=== PATIENT | female | born 1980 | race Caucasian/White ===

== ENCOUNTER → 2016-11-06 | Outpatient (CLI) | payer OTHER ==
[~2016-11-06] MED LIST: BACL10TA2 OR; BACL10TA2 PO; CITA20TA4 PO; IBUP200T2 PO; LISI10TA2 PO; LISI10TA4 PO; ROZEREM PO; TRAM50TA2 PO; TYLENOL #3 PO; VICO5TAB PO; rozerem
--- NOTE | 2016-11-26 00:06 | ECWPNPC ---
PATIENT NAME: JEANNETTE MURDOCK : 1980 GENDER: FEMALE VISIT DATE: 11/06/2016 DISCHARGE DATE: 11/06/16 1010 VISIT LOCKED DATE TIME: PHYSICIAN: AURELIANO SHARP RESOURCE: AURELIANO SHARP REASON FOR APPOINTMENT 1. BACK AND HIPS HISTORY OF PRESENT ILLNESS HISTORY OF PRESENT ILLNESS: PAIN THE PATIENT DESCRIBES THE PAIN... FALL RISK SCREENING: SCREENING :NO FALLS IN THE PAST YEAR TODAY'S VISIT: NOTES: RATES PAIN TODAY 2-3/10. DESCRIBES THE PAIN IS INTERMITTANT. HAS SOME GOOD DAYS AND BAD DAYS AND DOES WELL WITH HOT DAYS. PAIN IS CENTERED ACROSS THE BACK WITH NO RADIATION TO THE LEGS. . CURRENT MEDICATIONS TAKING MELOXICAM 15 MG TABLET 1 TABLET ORALLY ONCE A DAY TAKING LISINOPRIL 10 MG TABLET 1 TABLET ORALLY ONCE A DAY TAKING CITALOPRAM HYDROBROMIDE 20 MG TABLET 1 TABLET ORALLY ONCE A DAY, NOTES: 08-21-15 9:30PM TAKING BACLOFEN 10 MG TABLET 1/2 1 TABLET ORALLY THREE TIMES A DAY TAKING TRAMADOL HCL 50 MG TABLET 1 -2 TABLET ORALLY EVERY 6 HRS PRN PAIN MDD=6 TAKING NORCO 7.5-325 MG TABLET 1 TABLET NEEDED ORALLY EVERY 8-12 HRS PRN PAIN MDD=2 NOT-TAKING PERCOCET 5-325 MG TABLET 1 TABLET ORALLY EVERY 8-12 HRS PRN PAIN MDD=2 MEDICATION LIST REVIEWED AND RECONCILED WITH THE PATIENT ALLERGIES ZANTAC: HIVES: ALLERGY ROLAIDS: HIVES: ALLERGY SOCIAL HISTORY GENERAL: TOBACCO USE ARE YOU A:CURRENT SMOKER PT GIVEN SMOKING CESSATION CLASS INFORMATION PATIENT COUNSELED ON THE DANGERS OF TOBACCO USE AND URGED TO QUIT:04/26/2016 ARE YOU INTERESTED IN QUITTING?NOT READY TO QUIT COUNSELED THE PATIENT ON SMOKING EFFECTS, EDUCATION [id number]/16/2016 SMOKING CESSATION INFORMATION GIVEN04/26/2016 LEARNING BARRIERS / SPECIAL NEEDS ORIENTED TO PLAN OF CARE: PATIENT, PAIN MANAGEMENT PATIENT, ORIENTED TO PLAN OF CARE: PATIENT, PAIN MANAGEMENT PATIENT. NEW PATIENT PAIN DIARY TODAY'S VISIT NOTES, FROM 0-10, WHAT LEVEL IS YOUR PAIN TODAY? 0. PAIN CLINIC PFS, CLERGY, PUBLIC HEALTH REFERRALS PFS REFERRAL NEEDED? NO, CLERGY REFERRAL NEEDED? NO, PUBLIC HEALTH REFERRAL NEEDED? NO, WAS THE PROVIDER NOTIFIED OF ANY PERTINENT INFO? NO, PFS REFERRAL NEEDED? NO, CLERGY REFERRAL NEEDED? NO, PUBLIC HEALTH REFERRAL NEEDED? NO, WAS THE PROVIDER NOTIFIED OF ANY PERTINENT INFO? NO. REVIEW OF SYSTEMS REVIEWED BY: PROVIDER: AURELIANO VILLASEÑOR . CONSTITUTIONAL: ANY CHANGE IN YOUR MEDICAL CONDITION? NO . CHILLS NO . FEVER NO . INFECTION: DO YOU HAVE NEW INFECTIONS? NO . DO YOU HAVE HISTORY OF MRSA? NO . MUSCULOSKELETAL: ANY NEW PATTERNS OF PAIN OR NUMBNESS? NO . GASTROENTEROLOGY: GENERAL HAS SEVERE CONSTIPATION AND IS GOING TO HAVE A SURGERY WITH DR PERERA IN [place] AFTER November BOWELS MOVE ONLY ABOUT EVERY 3 WEEKS . ANY NEW CHANGE IN BOWEL CONTROL? NO . GENITOURINARY: ANY NEW CHANGE IN BLADDER CONTROL? NO . IS THERE A CHANCE YOU COULD BE ? NO . HEMATOLOGY/LYMPH: DO YOU TAKE ANY BLOOD THINNERS? (FOR EXAMPLE- COUMADIN, PLAVIX, AGGRENOX, PLATEL, PRADAXA, OR XARELTO) NO . WHEN WAS YOUR LAST DOSE? DATE: TIME: . NEUROLOGY: HAVE YOU FALLEN IN THE PAST 6 MONTHS? NO . ANY NEW EXTREMITY NUMBNESS OR WEAKNESS? NO . CARDIOLOGY: DO YOU HAVE A PACEMAKER OR DEFIBRILLATOR? NO . RESPIRATORY: HAVE YOU BEEN SICK IN THE PAST WEEK? NO . FEVER NO . FLU LIKE SYMPTOMS? NO . COUGH NO . INTEGUMENTARY: DO YOU HAVE ANY RASHES OR OPEN SORES? NO . ALLERGIC/IMMUNO: ARE YOU ALLERGIC TO SHELLFISH OR IV DYE? NO . ANY NEW ALLERGIES? NO . PSYCHIATRIC: DO YOU HAVE THOUGHTS OF HURTING YOURSELF OR SOMEONE ELSE? NO . ARE YOU ABUSED, NEGLECTED, OR IN AN UNSAFE ENVIRONMENT? NO . ENDOCRINOLOGY: ARE YOU DIABETIC? NO . OTHER: DO YOU NEED ANY PRESCRIPTIONS? NO . IF YES, PLEASE LIST: ____ . ANY NEW PROBLEMS WITH YOUR MEDICATIONS? NO . WHEN DID YOU LAST EAT? ____ . WHEN DID YOU LAST DRINK? ____ . WHAT DID YOU LAST DRINK? ____ . NAME OF PERSON DRIVING YOU HOME? ____ . DO YOU HAVE ANY OTHER QUESTIONS OR CONCERNS NO . VITAL SIGNS WT 180.0 LBS, HT 64 IN, BMI 30.89 INDEX, BP 134/84 MM HG, HR 72 /MIN, RR 16 /MIN, TEMP 97.7 F, OXYGEN SAT % 98%, NA INITIALS TL 0856, REVIEWED BY: KG. EXAMINATION GENERAL EXAMINATION: PSYCHALERT , ORIENTED X 3 , APPROPRIATE MOOD AND AFFECT . LUNGS:CLEAR TO AUSCULTATION BILATERALLY. HEART:HEART RATE REGULAR. MUSCULOSKELETAL:MUSCLE STRENGTH TESTING 5/5 BILATERAL UPPER AND LOER EXTREMITIES. POINT TENDERNSS OVER LUMAR SPINOUS PROCESSES AND OVE RTHE LEFT TROCANTER LEFT SIDED LIMP NOTED.. ASSESSMENTS HIP BURSITIS, LEFT - M70.72 (PRIMARY) LOW BACK PAIN - M54.5 OTHER CHRONIC PAIN - G89.29 CHRONIC PRESCRIPTION OPIATE USE - Z79.891 TREATMENT HIP BURSITIS, LEFT REFILL BACLOFEN TABLET, 10 MG, 1/2 1 TABLET, ORALLY, THREE TIMES A DAY, 30 DAY(S), 90, REFILLS 5 REFILL NORCO TABLET, 7.5-325 MG, 1 TABLET NEEDED, ORALLY, EVERY 8-12 HRS PRN PAIN MDD=2, 30 DAY(S), 60, REFILLS 0 NOTES: UTOX TODAY. CONSIDER HIP BURSA INJECTION. CLINICAL NOTES: ISTOP REGISTRY REVIEWED AND DEMNOSTRATES COMPLLIANCE. BRINGS IN MEDICATIONS WHICH IS APPROPRIATE FOR WHAT WAS DISPENSED. RECENT URINE TOXICOLOGY REVIEWED. NO UNAUTHORIZED MEDICATIONS. NO ILLICIT SUBSTANCES AND PRESCRIBED MEDICATIONS WERE PRESENT. PROCEDURE CODES FA211 ESTABILISHED PATIENT [facility] CHARGE DISPOSITION & COMMUNICATION FOLLOW UP 3 MONTHS (REASON: HIP/BACK PAIN) ELECTRONICALLY SIGNED BY UMAIR LARA ON 11/25/2016 AT 05:14 PM EDT DISCLAIMER : THIS IS A VISIT SUMMARY EXTRACTED FROM THE [employer] CHART. IT IS NOT A COPY OF THE [employer] PROGRESS NOTE. STONE
== END ==
LOC: M PAIN 09:20
PROVIDERS: ATTEND Nurse Practitioner Family
DX: M70.72 Other bursitis of hip, left hip (principal); M54.5 Low back pain; G89.29 Other chronic pain; Z79.891 Long term (current) use of opiate analgesic; Z79.899 Other long term (current) drug therapy; F17.210 Nicotine dependence, cigarettes, uncomplicated; Z88.8 Allergy status to other drugs, medicaments and biological substances

== ENCOUNTER → 2016-11-29 | Outpatient (CLI) | payer OTHER | LOC: M RAD 08:00 | PROVIDERS: ATTEND Surgery | DX: K59.00 Constipation, unspecified (principal) ==

== ENCOUNTER → 2016-12-01 | Outpatient (CLI) | payer OTHER | LOC: M RAD 08:00 | PROVIDERS: ATTEND Surgery | DX: K59.00 Constipation, unspecified (principal) ==

== ENCOUNTER → 2016-12-03 | Outpatient (CLI) | payer OTHER ==
--- NOTE | 2016-11-29 15:17 | REP ---
Supine abdomen two views for sitz marker analysis: There are no comparison studies. There are numerous surgical clips in the abdominal right upper quadrant. There are approximately 13 sitz markers in the cecum and proximal ascending colon. There is a single sitz marker in the colonic hepatic flexure. There are four sitz markers in the splenic flexure. There are three sitz markers in the descending colon. There is no bowel distension or obstruction. No calcifications. The skeletal structures and soft tissues are otherwise unremarkable Signed by Min Viramontes MD 11/29/2016 03:09 P
--- NOTE | 2016-12-02 01:26 | REP ---
Clinical: Sitz marker study. Technique: Two supine views of the abdomen and pelvis. Findings: Comparison is made with 11/29/2016. Current examination (sitz marker study day 3) demonstrates multiple markers within the descending colon extending from the splenic flexure to the rectosigmoid along with approximately seven residual markers in the ascending through proximal transverse colon. The bowel gas pattern itself is nonspecific. The patient appears to be status post cholecystectomy. The skeletal structures are intact. Impression: Nonspecific bowel gas pattern. Majority of sitz markers are identified within the descending colon / rectosigmoid. Signed by Will Guerra MD 12/02/2016 01:17 A
--- NOTE | 2016-12-04 02:35 | REP ---
Clinical: Sitz marker study. Comparison: 12/01/2016. Technique: Two supine views of the abdomen and pelvis. Findings: Current examinations demonstrate a single residual sitz marker at the rectosigmoid level. The bowel gas pattern is nonspecific. Evidence for prior cholecystectomy. No organomegaly. Skeletal structures intact. Impression: Nonspecific bowel gas pattern. Single residual sitz marker at the rectosigmoid level. Signed by Will Guerra MD 12/04/2016 02:27 A
== END ==
LOC: M RAD 08:00
PROVIDERS: ATTEND Surgery
DX: K59.00 Constipation, unspecified (principal)

== ENCOUNTER → 2018-11-16 | Outpatient (CLI) | payer OTHER ==
[~2018-11-16] MED LIST changes: -CITA20TA4 PO; +CITA20TA6 PO
--- NOTE | 2018-11-16 21:06 | REP ---
Clinical: Left ankle pain . Technique: AP, lateral, bilateral oblique views left ankle . Findings: No acute fracture or dislocation. Skeletal structures and joint spaces are intact and normal. Ankle mortise appears stable. No subcutaneous emphysema or radiodense foreign body. Impression: Normal left ankle ankle radiograph series. Electronically Signed by Will Guerra MD 11/16/2018 08:58 P
== END ==
LOC: M WUC 11:23
PROVIDERS: ATTEND Physician Assistant
DX: M25.572 Pain in left ankle and joints of left foot (principal)

== ENCOUNTER → 2021-07-13 | Outpatient (CLI) | payer OTHER ==
[~2021-07-13] MED LIST changes: -LISI10TA2 PO; +LISI10TA22 PO; +LISI10TA24 PO; -LISI10TA4 PO
== END ==
LOC: M PLAIMG 14:14
PROVIDERS: ATTEND Physician Assistant
DX: M51.37 Other intervertebral disc degeneration, lumbosacral region (principal)

== ENCOUNTER 2022-01-04 15:50 | Emergency (ER) | payer OTHER ==
[~2022-01-04] VITALS: Ht 162.6 cm; Wt 95.5 kg
[2022-01-04] MEDS ORDERED: METF500T13 PO (16:10)
[2022-01-04] MEDS ORDERED: HYDR-3363 PO (16:10)
[2022-01-04] MEDS ORDERED: GABA-1171 PO (16:10)
[2022-01-04] MEDS ORDERED: OMEP40CA5 PO (16:10)
[2022-01-04 17:51] LABS: BASO % 0.5 % (0.0-1.0); EOS # 0.2 10^3/uL (0.0-0.5); EOS % 2.3 % (0.0-3.0); HEMATOCRIT 40.4 % (36.0-47.0); LYMPH % 13.3 % (24.0-44.0); MEAN CORPUSCULAR HEMOGLOBIN 30.8 pg (27.0-33.0); MEAN CORPUSCULAR HGB CONC 34.7 g/dl (32.0-36.5); MONO # 0.5 10^3/uL (0.0-0.8); MONO % 6.6 % (2.0-8.0); NEUTROPHILS # 5.8 10^3/uL (1.5-8.5); NEUTROPHILS % 76.6 % (36.0-66.0); PLATELET COUNT, AUTOMATED 212 10^3/uL (150-450); RED BLOOD COUNT 4.54 10^6/uL (4.00-5.40); WHITE BLOOD COUNT 7.5 10^3/uL (4.0-10.0)
[2022-01-04] MEDS ORDERED: GABA-282 PO (17:58)
[2022-01-04] MEDS ORDERED: ERGO500029 PO (17:58)
[2022-01-04] MEDS ORDERED: HOME MED LIST COMPLETE! XX SCH (18:00)
[2022-01-04 18:20] LABS: ALBUMIN 3.9 GM/DL (3.2-5.2); ALT/SGPT 33 U/L (12-78); BILIRUBIN,DIRECT 0.2 MG/DL (0.0-0.2); BILIRUBIN,TOTAL 0.4 MG/DL (0.2-1.0); BLOOD UREA NITROGEN 5 MG/DL (7-18); CALCIUM LEVEL 9.2 MG/DL (8.5-10.1); CARBON DIOXIDE LEVEL 26 MEQ/L (21-32); CHLORIDE LEVEL 103 MEQ/L (98-107); CK-MB VALUE MASS < 1.0 NG/ML (<3.6); CPK CREATINE PHOSPHOKINASE 186 U/L (26-192); GLOMERULAR FILTRATION RATE > 60.0 (>58); GLUCOSE, FASTING 116 MG/DL (70-100); LIPASE 189 U/L (73-393); MB/CK RELATIVE INDEX 0.54 (< OR =4); POTASSIUM SERUM 3.3 MEQ/L (3.5-5.1); SODIUM LEVEL 137 MEQ/L (136-145); TOTAL PROTEIN 7.2 GM/DL (6.4-8.2)
[2022-01-04 20:15] VITALS: BP 145/85
[2022-01-04] MEDS ORDERED: ISOVUE-370 76% 100ML VIAL As Ordered ONE (20:21)
== END 2022-01-04 21:33 | disposition left against medical advice (07) ==
LOC: M ED 15:50
DX: R07.9 Chest pain, unspecified (principal); Z53.20 Procedure and treatment not carried out because of patient's decision for unspecified reasons; R94.31 Abnormal electrocardiogram [ECG] [EKG]; I10 Essential (primary) hypertension; E11.9 Type 2 diabetes mellitus without complications; E66.9 Obesity, unspecified; Z88.8 Allergy status to other drugs, medicaments and biological substances; Z90.49 Acquired absence of other specified parts of digestive tract; Z90.89 Acquired absence of other organs; Z79.84 Long term (current) use of oral hypoglycemic drugs; Z79.899 Other long term (current) drug therapy
CPT/HCPCS: 36415; 71045; 71275; 80047; 80048; 80076; 82550; 82553; 83690; 85025; 93005; 93041; 94760; 99285; Q9967

== ENCOUNTER → 2022-05-02 | Outpatient (CLI) | payer OTHER ==
[~2022-05-02] MED LIST changes: +ERGO500029 PO; +GABA-1171 PO; +GABA-282 PO; +HYDR-3363 PO; +METF500T13 PO; +OMEP40CA5 PO
== END ==
LOC: M RAD 10:47
PROVIDERS: ATTEND Physician Assistant
DX: M51.17 Intervertebral disc disorders with radiculopathy, lumbosacral region (principal)

== ENCOUNTER 2022-07-02 16:15 | Inpatient (IN) | payer OTHER ==
[~2022-07-02] VITALS: Ht 162.6 cm; Wt 95.2 kg
[2022-07-02 18:25] VITALS: BP 115/68
[2022-07-02] MEDS ORDERED: HYDR50TA70 PO (19:33)
[2022-07-02 19:34] LABS: HEMATOCRIT 39.8 % (36.0-47.0); HEMOGLOBIN 13.3 g/dl (12.0-15.5); MEAN CORPUSCULAR HEMOGLOBIN 30.2 pg (27.0-33.0); MEAN CORPUSCULAR HGB CONC 33.4 g/dl (32.0-36.5); MEAN CORPUSCULAR VOLUME 90.2 fl (80.0-96.0); PLATELET COUNT, AUTOMATED 201 10^3/uL (150-450); RED BLOOD COUNT 4.41 10^6/uL (4.00-5.40); WHITE BLOOD COUNT 14.3 10^3/uL (4.0-10.0)
[2022-07-02] MEDS ORDERED: ATOR1TAB19 PO (19:34)
[2022-07-02] MEDS ORDERED: HOME MED LIST COMPLETE! XX SCH (19:35)
[2022-07-02 19:45] LABS: INR 0.97; PROTHROMBIN TIME 13.1 SECONDS (12.5-14.5)
[2022-07-02 19:47] LABS: PARTIAL THROMBOPLASTIN TIME 26.2 SECONDS (24.8-34.2)
[2022-07-02 19:59] LABS: ALKALINE PHOSPHATASE 76 U/L (46-116); ALT/SGPT 27 U/L (7.0-40); AST/SGOT 55 U/L (<34); BILIRUBIN,TOTAL 0.6 MG/DL (0.3-1.2); BLOOD UREA NITROGEN 8 MG/DL (9-23); CALCIUM LEVEL 8.7 MG/DL (8.5-10.1); CARBON DIOXIDE LEVEL 28 MMOL/L (20-31); CHLORIDE LEVEL 104 MMOL/L (98-107); CREATININE FOR GFR 0.84 MG/DL (0.55-1.30); GLOMERULAR FILTRATION RATE > 60.0 (>58); GLUCOSE, FASTING 253 MG/DL (60-100); POTASSIUM SERUM 3.5 MMOL/L (3.5-5.1); SODIUM LEVEL 139 MMOL/L (136-145); TOTAL PROTEIN 5.7 G/DL (5.7-8.2)
[2022-07-02] MEDS ORDERED: DEXTROSE 50% 50ML SYRINGE IV PRN (20:20)
[2022-07-02] MEDS ORDERED: GLUCOSE 4GM CHEW TABLET PO PRN (20:20)
[2022-07-02] MEDS ORDERED: GLUCAGON INJ 1MG VIAL SC PRN (20:20)
[2022-07-02] MEDS ORDERED: MOM 30ML SUSPENSION UDC PO PRN (20:20)
[2022-07-02] MEDS ORDERED: GABAPENTIN 300 MG CAP PO PRN (20:25)
[2022-07-02 20:30] VITALS: BP 115/70
[2022-07-02] MEDS ORDERED: ATORVASTATIN 10 MG TAB PO SCH (21:00)
[2022-07-02] MEDS ORDERED: hydrOXYzine 50 MG TAB PO SCH (21:00)
[2022-07-02] MEDS ORDERED: cefTRIAXone SOD 1 GM in D5W MINI-BAG PLUS 50 ML IV SCH (21:00)
[2022-07-02] MEDS ORDERED: INSULIN LISPRO (NovoLOG) PER UNIT SC SCH (21:00)
[2022-07-02] MEDS ORDERED: NS 500 ML IV ONE (21:40)
[2022-07-02] MEDS: NS 1,000 ML IV SCH (21:41)
[2022-07-02] MEDS: HEPARIN SOD (PORCINE) 5000UNITS/ML 1ML VIAL/SYRINGE SC SCH (21:43)
[2022-07-02] MEDS: MORPHINE 2 MG/ML 1ML VIAL IV PRN (21:53)
[2022-07-03 01:02] LABS: APPEARANCE, URINE CLOUDY (CLEAR); BACTERIA, URINE AUTO 1+ (NEGATIVE); BILIRUBIN, URINE AUTO NEGATIVE (NEGATIVE); BLOOD, URINE BLOOD 2+ (NEGATIVE); COLOR, URINE YELLOW (YELLOW); GLUCOSE, URINE (UA) AUTO 3+ mg/dL (NEGATIVE); KETONE, URINE AUTO NEGATIVE (NEGATIVE); LEUKOCYTE ESTERASE, URINE AUTO 2+ (NEGATIVE); MUCUS, URINE SMALL (NEGATIVE); NITRITE, URINE AUTO NEGATIVE (NEGATIVE); PROTEIN, URINE AUTO 1+ mg/dL (NEGATIVE); RBC, URINE AUTO 15 /HPF (0-3); SPECIFIC GRAVITY URINE AUTO 1.024 (1.002-1.035); SQUAMOUS EPITHELIAL CELL UR AU 2 /HPF (0-6); UROBILINOGEN, URINE AUTO 0.2 mg/dL (0.0-2.0); WBC, URINE AUTO TNTC /HPF (0-3)
[2022-07-03] MEDS: ACETAMINOPHEN TAB 650MG DOSE (2X325MG) PO PRN ×2 (01:47→10:44)
[2022-07-03] MEDS ORDERED: NS 1,000 ML IV ONE (01:50)
[2022-07-03] MEDS: MORPHINE 2 MG/ML 1ML VIAL IV PRN ×2 (01:53→07:35)
[2022-07-03 04:40] VITALS: BP 103/60
[2022-07-03] MEDS: HEPARIN SOD (PORCINE) 5000UNITS/ML 1ML VIAL/SYRINGE SC SCH (05:18)
[2022-07-03 05:37] LABS: HEMATOCRIT 34.9 % (36.0-47.0); HEMOGLOBIN 11.5 g/dl (12.0-15.5); MEAN CORPUSCULAR HEMOGLOBIN 30.1 pg (27.0-33.0); MEAN CORPUSCULAR VOLUME 91.4 fl (80.0-96.0); PLATELET COUNT, AUTOMATED 174 10^3/uL (150-450); RED BLOOD COUNT 3.82 10^6/uL (4.00-5.40); WHITE BLOOD COUNT 10.2 10^3/uL (4.0-10.0)
[2022-07-03 06:09] LABS: ALBUMIN 2.6 G/DL (3.2-5.2); ALKALINE PHOSPHATASE 62 U/L (46-116); ALT/SGPT 20 U/L (7.0-40); AST/SGOT 21 U/L (<34); BILIRUBIN,TOTAL 0.3 MG/DL (0.3-1.2); BLOOD UREA NITROGEN 7 MG/DL (9-23); CALCIUM LEVEL 7.8 MG/DL (8.5-10.1); CARBON DIOXIDE LEVEL 25 MMOL/L (20-31); CHLORIDE LEVEL 109 MMOL/L (98-107); CREATININE FOR GFR 0.69 MG/DL (0.55-1.30); GLOMERULAR FILTRATION RATE > 60.0 (>58); GLUCOSE, FASTING 277 MG/DL (60-100); POTASSIUM SERUM 3.6 MMOL/L (3.5-5.1); SODIUM LEVEL 140 MMOL/L (136-145); TOTAL PROTEIN 4.9 G/DL (5.7-8.2)
[2022-07-03] MEDS ORDERED: INSULIN LISPRO (NovoLOG) PER UNIT SC SCH (07:30)
[2022-07-03] MEDS: NS 1,000 ML IV SCH (07:35)
[2022-07-03] MEDS ORDERED: LEVEMIR (INSULIN DETEMIR) 1 UNITS/0.01ML SC SCH (09:00)
[2022-07-03] MEDS ORDERED: PANTOPRAZOLE 20 MG TAB PO SCH (09:00)
[2022-07-03 10:07] LABS: HEMOGLOBIN A1c 9.5 % (4.0-6.0)
[2022-07-03] MEDS ORDERED: PANT20TA6 PO (10:33)
[2022-07-03] MEDS ORDERED: CEFD300CAP PO (10:33)
[2022-07-03] MEDS ORDERED: INSUDET SC (10:33)
[2022-07-03] MEDS ORDERED: METF10004 PO (10:33)
[2022-07-03] MEDS ORDERED: BLOOKIT21 XX (11:50)
[2022-07-03] MEDS ORDERED: LANC30MI XX (11:50)
[2022-07-03] MEDS ORDERED: BASA100I SC (11:50)
[2022-07-03] MEDS ORDERED: ALCOPAD25 TOP (11:50)
[2022-07-03] MEDS ORDERED: FIFT31MI2 SC (11:50)
[2022-07-03] MEDS ORDERED: GLUC1TES2 XX (11:50)
== END 2022-07-03 13:55 | disposition home or self-care (01) | DRG 463 ==
LOC: M MSPAV 18:26
PROVIDERS: ADMIT Internal Medicine; ATTEND Internal Medicine
DX: N13.6 Pyonephrosis (principal); E11.65 Type 2 diabetes mellitus with hyperglycemia; I10 Essential (primary) hypertension; E66.9 Obesity, unspecified; Z68.36 Body mass index [BMI] 36.0-36.9, adult; F17.200 Nicotine dependence, unspecified, uncomplicated; E78.5 Hyperlipidemia, unspecified; K21.9 Gastro-esophageal reflux disease without esophagitis; Z79.84 Long term (current) use of oral hypoglycemic drugs; Z79.899 Other long term (current) drug therapy; Z88.8 Allergy status to other drugs, medicaments and biological substances; Z90.49 Acquired absence of other specified parts of digestive tract

== ENCOUNTER → 2023-12-09 | Outpatient (REF) ==
[~2023-12-09] MED LIST changes: +ALCOPAD25 TOP; +ATOR1TAB19 PO; +BASA100I SC; +BLOOKIT21 XX; +CEFD300CAP PO; +GLUC1TES2 XX; +HYDR50TA70 PO; +INSUDET SC; +LANC30MI XX; +METF10004 PO; +PANT20TA6 PO; +PEN-371 SC
== END ==
LOC: M PLAIMG 12:49
PROVIDERS: ATTEND Internal Medicine
DX: R52 Pain, unspecified (principal)

== ENCOUNTER → 2024-05-11 | Outpatient (REF) ==
[~2024-05-11] MED LIST changes: +GABA-1172 PO; -GABA-282 PO
== END ==
LOC: M PLALAB 11:39
PROVIDERS: ATTEND Internal Medicine
DX: M25.551 Pain in right hip (principal); M25.552 Pain in left hip; M47.817 Spondylosis without myelopathy or radiculopathy, lumbosacral region

== ENCOUNTER → 2024-07-07 | Outpatient (CLI) | payer OTHER | LOC: M CARPUL 12:55 | PROVIDERS: ATTEND Internal Medicine Cardiovascular Disease | DX: R07.9 Chest pain, unspecified (principal); R06.02 Shortness of breath ==

== ENCOUNTER → 2024-09-22 | Outpatient (REF) | LOC: M PLAIMG 13:14 | PROVIDERS: ATTEND Internal Medicine | DX: R52 Pain, unspecified (principal) ==